=== PATIENT | female | born 1975 | race Caucasian/White ===

== ENCOUNTER 2016-10-14 11:12 | Emergency (ER) | payer OTHER ==
[~2016-10-14] VITALS: Ht 167.6 cm; Wt 70.2 kg
[~2016-10-14 11:12] MED LIST: IBUP1CAP9 PO; MULTTAB58 PO
[2016-10-14 11:29] VITALS: BP 153/99; PULSE 76; TEMP 36.8; O2SAT 97; Ht 167.6 cm; Wt 70.2 kg
--- NOTE | 2016-10-14 12:10 | EMERGENCY ROOM VISIT NOTE ---
ED Visit Note First contact with patient: 11:51 Chief Complaint: "Laceration to pinky". History of Present Illness: This patient is a 41-year-old female who presents to the Emergency Department via private vehicle for evaluation of their right fifth finger laceration. Patient sustained the laceration while cleaning the grill, place and the items back in place when she accidentally sliced the finger pad of the right fifth digit approximately 1 hour prior to arrival. They report a moderate amount of bleeding initially. They deny any numbness or tingling into the distal extremity. They report no decreased range of motion of the affected digit. Patient's Tetanus status is currently up-to-date. Medications: As noted below Allergies: As noted below PMH: Asthma, bronchitis, ablation SHx: Patient lives with herself and daughter ROS: All pertinent positive and negative review of systems are appropriately documented in the History of Present Illness. Physical Exam: VITAL SIGNS - Vital signs and nursing notes were reviewed. Patient is afebrile , slightly hypertensive at 153/99, non-tachycardic and is saturating well on room air 97%. GENERAL -41-year-old female appearing her stated age who is in no acute distress. Communicates well with provider and answers questions appropriately. SKIN - There is a 0.5 cm long laceration noted finger pad of the right fifth digit. The edges do not gape apart with traction. This appears to be superficial with a small skin flap. No foreign bodies appreciated. Upon further examination there are no deep structures including vessel, tendon, or bony structures appreciated. There is no active bleeding noted. No bony tenderness. MUSCULOSKELETAL - Laceration as described above. +5/5 strength appreciated of the affected digit. Full range of motion of the affected digit. NEUROLOGIC - Spinothalamic tract was found to be intact with ability to discriminate sharp versus dull sensation. No sensory defects of the dorsal column were appreciated utilizing light touch for evaluation. VASCULAR - Capillary refill was brisk. ED Course: Patient was seen and evaluated by myself. Risks and benefits of performing primary wound closure versus no repair were discussed with the patient who verbalizes understanding. Verbal consent was obtained prior to performing the procedure. Patient did not anesthesia. I do believe the Dermabond will be appropriate for this. The wound was cleansed and prepped in the typical sterile fashion utilizing normal saline and Betadine. The wound was copiously irrigated with normal saline and Betadine. The wound was closed using Dermabond with the wound edges being well approximated. Patient tolerated the procedure well. No complications were met. A metal splint was applied to the finger for comfort. Patient is a follow-up workman's compensation. Patient educated on worrisome symptoms for return visit to the Emergency Department. Patient discharged to home in good condition. In the evaluation and treatment of this patient the following differential diagnoses were entertained: Finger laceration, finger fracture, among others. Current/Historical Medications Scheduled Multiple Vitamin (Multivitamin), 1 TABLET PO DAILY Allergies Coded Allergies: Codeine (Verified Allergy, Unknown, 10/14/16) NAUSEA Vital Signs Date Time Temp Pulse Resp B/P Pulse Ox O2 Delivery O2 Flow Rate FiO2 10/14/16 11:29 36.8 76 20 153/99 97 Room Air Departure Information Impression Primary Impression: Laceration Dispostion Home / Self-Care Condition GOOD Referrals No Doctor, Assigned (PCP) Patient Instructions My [facility] Additional Instructions Discharge Instructions: You have received dermabond on your finger. This is dissolvable and WILL NOT need to be removed by a health care provider. Please call your Workmen's Compensation individual for further evaluation and management. Please wear the splint for comfort for the next 1-2 weeks as we discussed. Proper wound care is essential for adequate wound healing and infection prevention. You can shower and clean the wound with soap and water. Do not scour over the wound, pat dry with a towel. Do not submerse the wound (i.e. bathe or dish wash) until the glue has dissolved (1-2 weeks) Look for signs of infection of the wound including: increased pain, swelling, foul discharge, streaking, or increased temperature. If any of these are noticed you should return to the Emergency Department for further assessment and treatment. As with any laceration you may have received nerve damage to the surrounding tissues. This damage may or may not be permanent. You should keep the area covered with sunscreen for the first 6 months to 1 year when at risk for exposure to help minimize scarring. You can also use scar reducing creams or Vitamin E oil to help minimize scarring. For pain control, you can use the following [id number] medicines (if >12 yo): - Regular strength (325mg/tab) Tylenol (acetaminophen) 2 tabs every 4-6 hours as needed. Do not exceed 12 tablets in a 24 hour period. Avoid taking more than 4 grams (4000 mg) of Tylenol per day. This includes any other sources of acetaminophen you may take on a regular basis. - Regular strength (200 mg/tab) Advil (ibuprofen) 1-2 tabs every 4-6 hours as needed. Do not exceed a dose of 3200 mg per day. Return to the emergency department if your symptoms worsen despite treatment course outlined above. Please return to the emergency department with any new/concerning symptoms of their standpoint.
== END 2016-10-14 12:20 | disposition home or self-care (01) ==
LOC: C.EDB 11:13 → C.EDD 12:20
DX: S61.216A Laceration without foreign body of right little finger without damage to nail, initial encounter (principal); W45.8XXA Other foreign body or object entering through skin, initial encounter; J45.909 Unspecified asthma, uncomplicated

== ENCOUNTER 2017-09-30 15:52 | Emergency (ER) | payer OTHER ==
[~2017-09-30] VITALS: Ht 167.6 cm; Wt 70.2 kg
[~2017-09-30 15:52] MED LIST changes: -IBUP1CAP9 PO
[2017-09-30 16:01] VITALS: TEMP 36.9; Ht 167.6 cm; Wt 70.2 kg
[2017-09-30] MEDS ORDERED: ONDANSETRON INJ 2 MG/ML 2 ML VIAL IV STA (16:12)
[2017-09-30] MEDS ORDERED: SODIUM CHLORIDE 0.9% 1000ML 1,000 ML IV STA (16:12)
[2017-09-30] MEDS ORDERED: MoRPHine SULFATE 4 MG/ML 1 ML CARP\\VIAL IV PRN (16:15)
[2017-09-30 16:33] LABS: BASO % 0.2 %; BASO ABS # 0.02 K/uL (0-0.2); EOS % 0.8 %; EOS ABS # 0.09 K/uL (0-0.5); HEMATOCRIT 43.8 % (37-47); HEMOGLOBIN 15.8 g/dL (12.0-16.0); IG# 0.03 K/uL (0.00-0.02); LYMPH % 17.2 %; MEAN CELL VOLUME 90.3 fL (80-100); MEAN CORPUSCULAR HEMOGLOBIN 32.6 pg (25-34); MEAN CORPUSCULAR HGB CONC 36.1 g/dl (32-36); MEAN PLATELET VOLUME 10.4 fL (7.4-10.4); MONO % 5.2 %; MONO ABS # 0.57 K/uL (0.11-0.59); NEUT % 76.3 %; NEUT ABS # 8.45 K/uL (1.4-6.5); PLATELET COUNT 162 K/uL (130-400); RED CELL DISTRIBUTION WIDTH CV 13.2 % (11.5-14.5); RED CELL DISTRIBUTION WIDTH SD 43.3 fL (36.4-46.3); WHITE BLOOD COUNT 11.06 K/uL (4.8-10.8)
[2017-09-30] MEDS ORDERED: RANI150T3 PO (16:35)
[2017-09-30] MEDS ORDERED: LANS15CA15 PO (16:35)
--- NOTE | 2017-09-30 16:35 | EMERGENCY ROOM VISIT NOTE ---
History Report prepared by Kings: Natalee Chanel Under the Supervision of: Dr. Donavon Buckley D.O. First contact with patient: 16:07 Chief Complaint: ABDOMINAL PAIN Stated Complaint: STOMACH PAINS Nursing Triage Summary: pt reports started Sun. with burning in stomach and started taking zantac and prevacid and this was helping but then started with shooting pains that is worse when moving denies urinary sx vomitting Sun. and Mon. cont to feel nauseated but no vomitting History of Present Illness The patient is a 42 year old female who presents to the Emergency Room with complaints of persistent abdominal pain starting 6 days ago. She states that her stomach has been "on fire" all week. She has a history of acid reflux and irritable bowel. She had vomiting and diarrhea earlier in the week which has resolved. Today she started getting lower abdominal pain which worsen when she is up walking around. The pain is a sharp pain. She tried taking Aleve to no significant relief. She is also having some lower back pain. She has a family history of gallbladder disease. She has a history of pelvic surgery and no longer has periods. She does smoke. She denies any sick contacts. She currently works as a informal waiter/waitress. Source of History: patient Onset: 6 days ago Position: abdomen Quality: burning, sharp Timing: other (persistent) Modifying Factors (Worsening): movement Modifying Factors (Relieving): rest Associated Symptoms: + vomiting, + back pain, + diarrhea Review of Systems See HPI for pertinent positives & negatives. A total of 10 systems reviewed and were otherwise negative. Past Medical & Surgical Medical Problems: (1) Acid reflux (2) Irritable bowel syndrome Family History Gallbladder disease Social History Smoking Status: Current Every Day Smoker Marital Status: Occupation Status: employed Current/Historical Medications Scheduled Cefdinir (Omnicef), 300 MG PO Q12H Lansoprazole (Prevacid), 15 MG PO DAILY Ranitidine Hcl (Zantac), 150 MG PO BID Allergies Coded Allergies: Codeine (Verified Allergy, Unknown, 09/30/17) NAUSEA Physical Exam Vital Signs Date Time Temp Pulse Resp B/P (MAP) Pulse Ox O2 Delivery O2 Flow Rate FiO2 09/30/17 22:53 64 20 143/83 98 09/30/17 20:40 66 20 143/100 97 Room Air 09/30/17 18:23 69 18 153/96 97 Room Air 09/30/17 17:04 70 09/30/17 17:00 77 16 154/96 96 Room Air 09/30/17 16:01 36.9 94 20 163/116 97 Room Air Physical Exam GENERAL: Patient is awake, alert, somewhat anxious appearing and uncomfortable. EYES: The conjunctivae are clear. The pupils are round and reactive. EARS, NOSE, MOUTH AND THROAT: The nose is without any evidence of any deformity. Mucous membranes are moist tongue is midline NECK: The neck is nontender and supple. RESPIRATORY: Normal respiratory effort is noted there is no evidence of wheezing rhonchi or rales CARDIOVASCULAR: Regular rate and rhythm noted there no murmurs rubs or gallops normal S1 normal S2 GASTROINTESTINAL: Mildly distended and diffusely tender. There was guarding noted in both lower quadrants. BACK: No midline tenderness or or step-off noted range of motion in flexion extension as well as rotation no signs of muscle spasm noted MUSCULOSKELETAL/EXTREMITIES: There is no evidence of gross deformity full range of motion is noted in the hips and shoulders SKIN: There is no obvious evidence of any rash. There are no petechiae, pallor or cyanosis noted. NEUROLOGIC: Patient is awake alert and oriented x3 Medical Decision & Procedures ER Provider Diagnostic Interpretation: Radiology results as stated below per my review and radiologist interpretation: CT OF THE ABDOMEN AND PELVIS WITH CONTRAST CLINICAL HISTORY: Lower abdominal pain. COMPARISON STUDY: CT of the abdomen and pelvis June 18, 2012. TECHNIQUE: Following IV administration of 100 mL of Optiray-320, axial images of the abdomen and pelvis were obtained from the lung bases to the proximal femurs. Images were reviewed in the axial, sagittal, and coronal planes. IV contrast was administered without complication. A dose lowering technique was utilized adhering to the principles of ALARA. Oral contrast was administered. CT DOSE: 378.88 mGy.cm FINDINGS: The liver, spleen, adrenal glands, kidneys and pancreas are normal. There is no evidence for a bowel obstruction. The appendix is normal. No pneumatosis, free air or portal venous gas is present. Contraceptive wires are in place. 2 left adnexal cystic lesions are noted. These measure up to 3.6 cm. There is trace fluid within the pelvis. No suspicious osseous lesions are present. There is no peripancreatic or pericholecystic infiltration. There is trace gas within the bladder. IMPRESSION: 1. Normal appendix. No bowel obstruction. 2. Two cystic left adnexal lesions which likely reflect ovarian cysts. 3. Trace gas within the bladder which could be correlated with history of recent instrumentation. Electronically signed by: James Garrido M.D. 09/30/2017 10:04 PM Dictated Date/Time: 09/30/2017 9:58 PM Laboratory Results 09/30/17 16:25 Red Blood Count 4.85, Mean Corpuscular Volume 90.3, Mean Corpuscular Hemoglobin 32.6, Mean Corpuscular Hemoglobin Concent 36.1, Mean Platelet Volume 10.4, Neutrophils (%) (Auto) 76.3, Lymphocytes (%) (Auto) 17.2, Monocytes (%) (Auto) 5.2, Eosinophils (%) (Auto) 0.8, Basophils (%) (Auto) 0.2, Neutrophils # (Auto) 8.45, Lymphocytes # (Auto) 1.90, Monocytes # (Auto) 0.57, Eosinophils # (Auto) 0.09, Basophils # (Auto) 0.02 09/30/17 16:25 Test 09/30/17 16:25 09/30/17 19:00 White Blood Count 11.06 K/uL (4.8-10.8) Red Blood Count 4.85 M/uL (4.2-5.4) Hemoglobin 15.8 g/dL (12.0-16.0) Hematocrit 43.8 % (37-47) Mean Corpuscular Volume 90.3 fL (80-100) Mean Corpuscular Hemoglobin 32.6 pg (25-34) Mean Corpuscular Hemoglobin Concent 36.1 g/dl (32-36) Platelet Count 162 K/uL (130-400) Mean Platelet Volume 10.4 fL (7.4-10.4) Neutrophils (%) (Auto) 76.3 % Lymphocytes (%) (Auto) 17.2 % Monocytes (%) (Auto) 5.2 % Eosinophils (%) (Auto) 0.8 % Basophils (%) (Auto) 0.2 % Neutrophils # (Auto) 8.45 K/uL (1.4-6.5) Lymphocytes # (Auto) 1.90 K/uL (1.2-3.4) Monocytes # (Auto) 0.57 K/uL (0.11-0.59) Eosinophils # (Auto) 0.09 K/uL (0-0.5) Basophils # (Auto) 0.02 K/uL (0-0.2) RDW Standard Deviation 43.3 fL (36.4-46.3) RDW Coefficient of Variation 13.2 % (11.5-14.5) Immature Granulocyte % (Auto) 0.3 % Immature Granulocyte # (Auto) 0.03 K/uL (0.00-0.02) Anion Gap 8.0 mmol/L (3-11) Est Creatinine Clear Calc Drug Dose 97.2 ml/min Estimated GFR () 121.4 Estimated GFR (Non- 104.8 BUN/Creatinine Ratio 17.6 (10-20) Calcium Level 9.6 mg/dl (8.5-10.1) Total Bilirubin 0.3 mg/dl (0.2-1) Direct Bilirubin < 0.1 mg/dl (0-0.2) Aspartate Amino Transf (AST/SGOT) 13 U/L (15-37) Alanine Aminotransferase (ALT/SGPT) 25 U/L (12-78) Alkaline Phosphatase 50 U/L (45-117) Total Protein 7.4 gm/dl (6.4-8.2) Albumin 4.1 gm/dl (3.4-5.0) Lipase 188 U/L (73-393) Human Chorionic Gonadotropin, Qual NEG (NEG) Urine Color DK YELLOW Urine Appearance CLOUDY (CLEAR) Urine pH 6.0 (4.5-7.5) Urine Specific [place] 1.029 (1.000-1.030) Urine Protein NEG (NEG) Urine Glucose (UA) NEG (NEG) Urine Ketones TRACE (NEG) Urine Occult Blood NEG (NEG) Urine Nitrite NEG (NEG) Urine Bilirubin NEG (NEG) Urine Urobilinogen NEG (NEG) Urine Leukocyte Esterase MODERATE (NEG) Urine WBC (Auto) >30 /hpf (0-5) Urine RBC (Auto) 0-4 /hpf (0-4) Urine Hyaline Casts (Auto) 0 /lpf (0-5) Urine Epithelial Cells (Auto) >30 /lpf (0-5) Urine Bacteria (Auto) 1+ (NEG) Urine Mucus PRESENT (NONE PRSENT) Laboratory results per my review. Medications Administered Medications (Trade) Dose Ordered Sig/Estelle Route Start Time Stop Time Status Last Admin Dose Admin Sodium Chloride 1,000 ml @ 999 mls/hr Q1H1M STAT IV 09/30/17 16:12 09/30/17 17:12 DC 09/30/17 16:53 999 MLS/HR Ondansetron HCl (Zofran Inj) 4 mg NOW STAT IV 09/30/17 16:12 09/30/17 16:14 DC 09/30/17 16:53 4 MG Morphine Sulfate (MoRPHine SULFATE INJ) 4 mg Q15M PRN IV 09/30/17 16:15 10/01/17 00:13 DC 09/30/17 16:53 4 MG Ketorolac Tromethamine (Toradol Inj) 30 mg NOW STAT IV 09/30/17 21:23 09/30/17 21:24 DC 09/30/17 21:39 30 MG Ceftriaxone Sodium (Rocephin Inj) 1 gm NOW STAT IV 09/30/17 21:23 09/30/17 21:25 DC 09/30/17 21:39 1 GM Oxycodone HCl (Roxicodone Immediate Rel 5MG Home Pack) 1 homepack UD ONCE PO 09/30/17 22:45 09/30/17 22:46 DC 09/30/17 22:46 1 HOMEPACK Ondansetron HCl (ZOFRAN ODT 4MG Home Pack) 1 homepack UD ONCE PO 09/30/17 22:45 09/30/17 22:46 DC 09/30/17 22:46 1 HOMEPACK ED Course 1608: The patient was evaluated in room B7. A complete history and physical examination were performed. 1612: Zofran Inj 4 mg IV, NSS 1000 ml @ 999 mls/hr IV. 1615: Morphine Sulfate 4 mg IV. 2123: Rocephin Inj 1 gm IV, Toradol Inj 30 mg IV. 2213: I reevaluated the patient. I updated her on the results. 2221: I discussed the patient's case with Dr. May, [facility]. He recommends close clinical follow up and agrees with antibiotic treatment. 2243: Upon reevaluation, the patient is resting comfortably. I discussed the results and treatment plan with her. She verbalized agreement of the treatment plan. She was discharged home. 2245: Zofran Odt 4 mg 1 homepack PO, Oxycodone HCl 1 homepack PO. Medical Decision Prior records/ancillary studies reviewed. Triage Nursing notes reviewed. The patient's history was concerning for abdominal pain. Differential diagnosis: Etiologies such as appendicitis, diverticulitis, PUD, biliary pathology, UTI, pancreatitis, obstruction, mesenteric ischemia, aortic pathology, infections, inflammatory bowel disease, renal colic, as well as others were entertained. The patient is a 42-year-old female who presented to the emergency department for evaluation of lower abdominal pain. The patient did not have any vaginal bleeding or cramping. The patient had lower abdominal tenderness to palpation. She had significant pain but I do not feel that her exam was consistent with a definite acute surgical abdomen. For this reason laboratory and radiographic studies were obtained. The patient was treated with IV fluids IV pain medicine and IV antibiotics for presumed urinary tract infection. I discussed the patient's laboratory and radiographic studies with her. She was found to have a small amount of air in her bladder. This does not appear to be consistent with a pyelonephritis but does appear to be isolated to the bladder. I discussed this case with the on-call urologist. It is likely that this represents sequelae from sexual intercourse earlier in the day. The patient was encouraged to continue all medications and call her primary care physician to schedule follow-up appointment. Otherwise she was encouraged to return the emergency department immediately if symptoms change worsen or the need arises. Medication Reconcilliation Current Medication List: was personally reviewed by me Blood Pressure Screening Patient's blood pressure: Elevated blood pressure Blood pressure disposition: Elevated BP felt to be situational Consults Time Called: 2215 Consulting Physician: Dr. May, [facility] Returned Call: 2220 I discussed the patient's case with him. He recommends close clinical follow up and agrees with antibiotic treatment. Impression Primary Impression: Lower abdominal pain Additional Impression: Cystitis Scribe Attestation The scribe's documentation has been prepared under my direction and personally reviewed by me in its entirety. I confirm that the note above accurately reflects all work, treatment, procedures, and medical decision making performed by me. Departure Information Dispostion Home / Self-Care Prescriptions Cefdinir (Omnicef) 300 Mg Cap 300 MG PO Q12H, #14 CAP Prov: Donavon Buckley, DO 09/30/17 Referrals Cristi Sanchez M.D. (PCP) Forms Call Back Authorization, HOME CARE DOCUMENTATION FORM, IMPORTANT VISIT INFORMATION Patient Instructions Abdominal Pain, ED UTI Cystitis Female, My [facility] Additional Instructions Continue all medications as prescribed. Call your family doctor to schedule a follow-up appointment versus possible. Return the emergency department immediately if symptoms change worsening the need arises. Problem Qualifiers
[2017-09-30 16:53] LABS: ALBUMIN 4.1 gm/dl (3.4-5.0); ALT/SGPT 25 U/L (12-78); BLOOD UREA NITROGEN 13 mg/dl (7-18); CALCIUM 9.6 mg/dl (8.5-10.1); CARBON DIOXIDE 26 mmol/L (21-32); CREATININE 0.72 mg/dl (0.60-1.20); GLUCOSE 101 mg/dl (70-99); LIPASE 188 U/L (73-393); POTASSIUM 4.1 mmol/L (3.5-5.1); SODIUM 139 mmol/L (136-145)
[2017-09-30 16:56] LABS: ALKALINE PHOSPHATASE 50 U/L (45-117); AST/SGOT 13 U/L (15-37); TOTAL PROTEIN 7.4 gm/dl (6.4-8.2)
[2017-09-30] MEDS ORDERED: OPTIRAY 320 IV PRN (17:30)
[2017-09-30] MEDS ORDERED: CEFTRIAXONE SOD INJ 1 GM ADDVIAL IV STA (21:23)
[2017-09-30] MEDS ORDERED: KETOROLAC TROMETHAMINE 30 MG/ML VIAL IV STA (21:23)
--- NOTE | 2017-09-30 22:05 | DIAGNOSTIC IMAGING REPORT ---
CT OF THE ABDOMEN AND PELVIS WITH CONTRAST CLINICAL HISTORY: Lower abdominal pain. COMPARISON STUDY: CT of the abdomen and pelvis June 18, 2012. TECHNIQUE: Following IV administration of 100 mL of Optiray-320, axial images of the abdomen and pelvis were obtained from the lung bases to the proximal femurs. Images were reviewed in the axial, sagittal, and coronal planes. IV contrast was administered without complication. A dose lowering technique was utilized adhering to the principles of ALARA. Oral contrast was administered. CT DOSE: 378.88 mGy.cm FINDINGS: The liver, spleen, adrenal glands, kidneys and pancreas are normal. There is no evidence for a bowel obstruction. The appendix is normal. No pneumatosis, free air or portal venous gas is present. Contraceptive wires are in place. 2 left adnexal cystic lesions are noted. These measure up to 3.6 cm. There is trace fluid within the pelvis. No suspicious osseous lesions are present. There is no peripancreatic or pericholecystic infiltration. There is trace gas within the bladder. IMPRESSION: 1. Normal appendix. No bowel obstruction. 2. Two cystic left adnexal lesions which likely reflect ovarian cysts. 3. Trace gas within the bladder which could be correlated with history of recent instrumentation. Electronically signed by: James Garrido M.D. 09/30/2017 10:04 PM Dictated Date/Time: 09/30/2017 9:58 PM
[2017-09-30] MEDS ORDERED: CEFD1CAP14 PO (22:39)
[2017-09-30] MEDS ORDERED: ONDANSETRON HOME PACK 4MG OD TAB PO ONE (22:45)
[2017-09-30] MEDS ORDERED: OXYCODONE IR HOME PACK PO ONE (22:45)
[2017-09-30 22:53] VITALS: BP 143/83; PULSE 64; O2SAT 98
== END 2017-09-30 22:55 | disposition home or self-care (01) ==
LOC: C.EDB 15:53
DX: N30.90 Cystitis, unspecified without hematuria (principal); K21.9 Gastro-esophageal reflux disease without esophagitis; K58.0 Irritable bowel syndrome with diarrhea; F17.200 Nicotine dependence, unspecified, uncomplicated; Z88.6 Allergy status to analgesic agent; Z83.79 Family history of other diseases of the digestive system